=== PATIENT | female | born 1940 | race Caucasian/White ===

== ENCOUNTER 2017-02-06 15:42 | Outpatient (CLI) | payer MEDICARE | END 2017-02-06 15:43 | disposition home or self-care (01) | LOC: HPCALD 15:42 | PROVIDERS: ATTEND Family Medicine | DX: N39.0 Urinary tract infection, site not specified (principal) | CPT/HCPCS: 87077; 87086; 87186 ==

== ENCOUNTER 2017-05-04 13:34 | Outpatient (CLI) | payer MEDICARE | END 2017-05-04 13:35 | disposition home or self-care (01) | LOC: HPCALD 13:34 | PROVIDERS: ATTEND Family Medicine | DX: N30.00 Acute cystitis without hematuria (principal) | CPT/HCPCS: 87086 ==

== ENCOUNTER 2019-01-21 11:22 | Outpatient (CLI) | payer MEDICARE ==
--- NOTE | 2019-01-21 19:34 | RAD ---
LEFT KNEE FOUR VIEWS: 01/21/19 No acute fracture was seen. There is no joint effusion. A bony density is seen in the joint, apparent ly just to the lateral side of midline. There is a little bit of irregularity in the articular surfac e of the lateral femoral condyle. I do not know if this could be a small avulsed fragment or osteocho ndral injury from the past. MRI would be needed to evaluate it further. There is some minimal osteoph ytes medially and very mild joint space narrowing. IMPRESSION: 1. No acute bony findings. Mild arthritic changes. 2. Possible old trauma to the articular surface of the medial femoral condyle. See above. If fur ther workup is deemed necessary, an MRI would be needed. POS: HOME
== END 2019-01-21 11:23 | disposition home or self-care (01) ==
LOC: BURRAD 11:22
PROVIDERS: ATTEND Family Medicine
DX: M25.562 Pain in left knee (principal); M17.12 Unilateral primary osteoarthritis, left knee

== ENCOUNTER 2021-11-14 03:01 | Emergency (ER) | payer MEDICARE, OTHER ==
[2021-11-14] MEDS ORDERED: Doxycycline 100 MG CAP ONE (03:35)
[2021-11-14] MEDS ORDERED: methylPREDNISolone Sod Succ/PF 125 MG/2 ML VIAL ONE (03:35)
[2021-11-14 15:35] LABS: SARS-CoV-2 PCR by NAA Not Detected (NotDetected)
== END 2021-11-14 03:47 | disposition home or self-care (01) ==
LOC: BURERS 03:01
DX: H61.22 Impacted cerumen, left ear (principal); J02.9 Acute pharyngitis, unspecified; R51.9 Headache, unspecified; R09.81 Nasal congestion; R05.9 Cough, unspecified; Z20.822 Contact with and (suspected) exposure to COVID-19; Z79.82 Long term (current) use of aspirin; Z79.899 Other long term (current) drug therapy
CPT/HCPCS: 69209; 96372; 99284; U0003; U0005; J2930

== ENCOUNTER 2023-09-18 08:43 | Outpatient (CLI) | payer MEDICARE | END 2023-09-18 08:44 | disposition home or self-care (01) | LOC: BURRAD 08:43 | PROVIDERS: ATTEND Family Medicine | DX: M25.551 Pain in right hip (principal); Z96.641 Presence of right artificial hip joint ==